=== PATIENT | female | born 1970 | race Caucasian/White ===

== ENCOUNTER 2017-06-02 09:01 | Emergency (ER) | payer OTHER, MEDICAID ==
[2017-06-02 09:41] LABS: BASOPHIL % 0.2 % (0-2); PLATELET COUNT 354 x10^3mcL (130-400); RED CELL DISTRIBUTION WIDTH 13.2 % (11.5-14.5)
[2017-06-02 10:12] LABS: CALCIUM 9.2 mg/dL (8.5-10.1); CHLORIDE SERUM 99 mmol/L (98-107); CREATININE SERUM 0.7 mg/dL (0.6-1.0); GFR1 > 60 mL/min; GLUCOSE SERUM 135 mg/dL (74-106); POTASSIUM SERUM 3.1 mmol/L (3.5-5.1); SODIUM SERUM 139 mmol/L (136-145)
[2017-06-02 10:16] LABS: ALKALINE PHOSPHATASE 80 U/L (46-116); ALT/SGPT 81 U/L (14-59); AST/SGOT 76 U/L (15-37); BILIRUBIN TOTAL 0.83 mg/dL (0.20-1.00); LIPASE 116 IU/L (73-393)
[2017-06-02 10:18] LABS: ALBUMIN 3.3 g/dL (3.4-5.0)
[2017-06-02 11:47] VITALS: BP 152/72
== END 2017-06-02 11:47 | disposition home or self-care (01) ==
LOC: ED 09:01
PROVIDERS: Emergency Medicine
DX: K21.9 Gastro-esophageal reflux disease without esophagitis (principal); E87.6 Hypokalemia; J45.909 Unspecified asthma, uncomplicated; I10 Essential (primary) hypertension; E11.9 Type 2 diabetes mellitus without complications; Z88.0 Allergy status to penicillin; Z79.84 Long term (current) use of oral hypoglycemic drugs
CPT/HCPCS: 83880; J2405; J7030; J7613; J7644

== ENCOUNTER 2018-03-20 08:46 | Emergency (ER) | payer OTHER, MEDICAID ==
[~2018-03-20] VITALS: Ht 152.4 cm; Wt 101.6 kg
[2018-03-20 08:55] VITALS: Ht 152.4 cm; Wt 101.6 kg
[2018-03-20 10:19] VITALS: BP 145/76
== END 2018-03-20 10:19 | disposition home or self-care (01) ==
LOC: ED 08:46
DX: M72.2 Plantar fascial fibromatosis (principal); I10 Essential (primary) hypertension; E11.9 Type 2 diabetes mellitus without complications; J45.909 Unspecified asthma, uncomplicated; Z88.0 Allergy status to penicillin

== ENCOUNTER 2018-06-10 11:10 | Emergency (ER) | payer OTHER, MEDICAID ==
[~2018-06-10] VITALS: Ht 152.4 cm; Wt 89.0 kg
[2018-06-10 11:24] VITALS: Ht 152.4 cm; Wt 89.0 kg
[2018-06-10 12:34] LABS: BASOPHIL % 0.5 % (0-2); PLATELET COUNT 213 x10^3mcL (130-400); RED CELL DISTRIBUTION WIDTH 14.1 % (11.5-14.5)
[2018-06-10 12:43] LABS: CALCIUM 9.6 mg/dL (8.5-10.1); CREATININE SERUM 1.1 mg/dL (0.6-1.0); POTASSIUM SERUM 3.5 mmol/L (3.5-5.1)
[2018-06-10 12:47] LABS: ALBUMIN 3.7 g/dL (3.4-5.0); BILIRUBIN TOTAL 1.44 mg/dL (0.20-1.00); TOTAL PROTEIN, SERUM 7.9 g/dL (6.4-8.2)
[2018-06-10 14:35] VITALS: BP 105/60
== END 2018-06-10 14:35 | disposition home or self-care (01) ==
LOC: ED 11:10
PROVIDERS: Emergency Medicine
DX: K29.70 Gastritis, unspecified, without bleeding (principal); G47.00 Insomnia, unspecified; E11.9 Type 2 diabetes mellitus without complications; I10 Essential (primary) hypertension; Z86.73 Personal history of transient ischemic attack (TIA), and cerebral infarction without residual deficits; Z85.43 Personal history of malignant neoplasm of ovary
CPT/HCPCS: 36415; Q0092; Q0162